=== PATIENT | female | born 1950 | race Caucasian/White ===

== ENCOUNTER 2023-09-24 09:48 | Outpatient (CLI) | payer MEDICARE, OTHER ==
--- NOTE | 2023-09-24 18:12 | MRI Report ---
PROCEDURE: LUMBAR SPINE WO INDICATIONS: LOW BACK PAIN TECHNIQUE: Noncontrast sagittal T1 spin echo and T2 fast echo, sagittal STIR, axial T1 and T2 fast spin echo thr ough the lumbar spine. In cases with scoliosis, additional coronal T2 fast spin echo may be performe d. COMPARISON: None. FINDINGS: Image quality: Excellent. Alignment and Curvature: There is minimal grade 1 anterolisthesis seen at the L4-L5 and the L5-S1 le vels. Mild dextroconvex scoliotic curvature is seen. Bone Marrow: Marrow is of normal overall signal. Scattered foci of T1-weighted hyperintensity and T 2-weighted hyperintensity are seen, without increased STIR signal. These foci are attributed to benig n vertebral body hemangiomas. The most prominent of these can be seen within the left aspect of the L1 vertebral body. No acute vertebral body compression fractures. Spinal Cord: Conus medullaris terminates at the L1 level. Visualized cord demonstrates normal signa l and size. Paraspinous Soft Tissues: No paravertebral masses. A few right liver cysts are partially seen. Ther e is a water signal right renal cyst noted. T12-L1: No significant abnormality is seen. L1-L2: Moderate loss of disc height and signal are seen. Mild disc bulge is seen. No significant neural foraminal or central canal narrowing can be seen. L2-L3: The disc height is well-preserved. There is loss of disc signal seen. Mild disc bulge is s een. Mild facet hypertrophy is seen. There is mild left-sided and no significant right-sided neurofo raminal narrowing. Minimal central canal narrowing is seen. L3-L4: At least moderate loss of disc height and disc signal can be seen on the left side. Reactiv e marrow endplate changes are seen, which are hyperintense on T1-weighted and T2-weighted imaging, wi thout significant increased STIR signal. These imaging findings are most consistent with fatty metapl toni (Modic type 2 change). Partially bridging endplate osteophytes are seen on the left, as on serie s 5 image 6. Moderate disc bulge is seen. A superimposed central disc protrusion is seen. At least m oderate facet hypertrophy is seen. There is moderate right-sided and moderate to severe left-sided ne uroforaminal narrowing. There is a degree of compression seen upon the exiting left L3 nerve root. At least moderate central canal narrowing is seen, as on series 7 image 9. L4-L5: Mild to moderate loss of disc height and disc signal can be seen. Mild to moderate disc bulg e is seen, which is eccentric to the left. A superimposed central disc protrusion is seen. Moderate to prominent facet hypertrophy is seen, left worse than right. Fluid is seen within the facet joints themselves. There is at least moderate right-sided and moderate to severe left-sided neuroforaminal n arrowing. Compression is seen upon the exiting nerve roots. At least moderate central canal narrowing is seen, as on series 6 image 35. L5-S1: Moderate loss of disc height and signal are seen. Reactive marrow endplate changes are seen , which are hyperintense on T1-weighted and T2-weighted imaging, without significant increased STIR s ignal. These imaging findings are most consistent with fatty metaplasia (Modic type 2 change). Mild t o moderate disc bulge is seen, which is eccentric to the right. Moderate to prominent facet hypertrop hy is seen. There is at least moderate left-sided and moderate to severe right-sided neuroforaminal n arrowing. There is a degree of compression seen upon the exiting right L5 nerve root. Mild central c anal narrowing is seen. IMPRESSION: Multiple levels of lumbar spine degenerative change can be seen, which are overall worst inferiorly. Several sites of significant neuroforaminal narrowing can be seen, with associated exiting nerve root compression. Reviewed by: Amilcar Ren MD on 09/24/2023 5:11 PM [facility]ST Approved by: Amilcar Ren MD on 09/24/2023 5:11 PM [facility] Station ID: [id number]
== END 2023-09-24 09:49 | disposition home or self-care (01) ==
LOC: DI 09:48
PROVIDERS: ATTEND Physical Medicine & Rehabilitation
DX: M47.816 Spondylosis without myelopathy or radiculopathy, lumbar region (principal); M47.817 Spondylosis without myelopathy or radiculopathy, lumbosacral region; M48.061 Spinal stenosis, lumbar region without neurogenic claudication; M48.07 Spinal stenosis, lumbosacral region